=== PATIENT | male | born 1940 | race Caucasian/White ===

== ENCOUNTER → 2017-07-29 | Outpatient (CLI) | payer MEDICARE ==
--- NOTE | 2017-07-29 15:52 | Diagnostic Imaging Report ---
PROCEDURE: CT ABDOMEN AND PELVIS WITHOUT CONTRAST COMPARISON:None. INDICATIONS:diverticulitis, llq TECHNIQUE: Axial CT images through the abdomen and pelvis were obtained without intravenous contrast. Oral contrast was administered.. Coronal and sagittal reformations were created. FINDINGS: Lung bases: Clear. Visualized portion of the mediastinum demonstrates a tiny pericardial effusion and moderate calcifications of the aortic valve and coronary arteries. Liver: Decreased attenuation without mass. Spleen: Normal size and contains tiny calcified granulomata Biliary: Multiple dependently layering gallstones measuring less than 10 mm. No biliary ductal dilatation Pancreas: Mild fatty atrophy without mass or ductal dilatation Adrenal Glands: No evidence of mass Right kidney: No renal calculi. Cyst or distended calyx in the upper pole measures 3.2 x 1.7 cm. In cyst at the hilum measures 6.0 x 6.9 cm. Lower pole cyst measures 17 mm. A soft tissue mass in the anterior lower pole measures 1.9 x 2.0 cm. No hydronephrosis. Left kidney: No renal calculi. No mass or hydronephrosis. Bladder/ureters: No ureteral dilatation or calculus. The bladder is underdistended with diffuse mural thickening. A diverticulum at the dome is partially calcified and measures 12 mm. Vasculature: The aorta is normal in diameter but ectatic. Iliac arteries are ectatic. GI: The stomach is well-distended and is normal. There is contrast through the small bowel without thickening or dilatation. There is a small amount of contrast in the right colon. Diverticulosis of the descending colon is present with mural thickening suggestive of previous palpable diverticulitis. No active inflammation on the unenhanced images. The appendix is normal. Peritoneum/Retroperitoneum: No free fluid or fluid collection. The omental infarct anterior to the sigmoid colon as it turns midline measures 3.2 x 2.3 cm. Reproductive organs: Prostate gland measures 5.2 x 5.9 cm. Lymph nodes: No lymphadenopathy. MSK: Mild to moderate generative changes of the spine. No compression deformities. No focal osseous lesions. Soft tissues: Fat-containing hernia as after 10 mm. Calcifications in the posterior left pelvis measure up to 2.8 x 2.0 cm. CONCLUSION: 1. Diverticulosis coli. No conclusive evidence of acute diverticulitis. 2. Right renal cysts and possible solid mass in the right kidney. Recommend further characterization with MRI. No IV contrast is needed. 3. Prostate hypertrophy and mural thickening of the bladder suggestive of outlet obstruction. 4. Partially calcified diverticulum in the bladder dome may represent a urachal or mural diverticulum. This should periodically monitored to confirm stability. 5. Hepatic steatosis. Dictated by: Paul Buchanan M.D. on 07/29/2017 at 15:52 Electronically approved by: Paul Buchanan M.D. on 07/29/2017 at 15:52
== END ==
LOC: CT 14:47
PROVIDERS: ATTEND Family Medicine
DX: K57.32 Diverticulitis of large intestine without perforation or abscess without bleeding (principal)
CPT/HCPCS: 74176

== ENCOUNTER → 2018-05-11 | Outpatient (CLI) | payer MEDICARE ==
[~2018-05-11] MED LIST: ACETAMINOPHEN 1000 MG/100 ML 100 ML IV ONE
--- NOTE | 2018-05-11 16:06 | Diagnostic Imaging Report ---
EXAM: Soft tissue neck Ultrasound INDICATION: Benign lipomatous tumor . Swelling of right lower cervical region since a week ago COMPARISON: None. TECHNIQUE: Transverse and longitudinal images of bilateral cervical/neck areas were obtained, utilizing grayscale and color Doppler modalities. FINDINGS: Physical examination discloses minimal asymmetry of the soft tissues in the right lower cervical region compared to the left. Sonographic examination shows normal skin, subcutaneous fat, muscle, vessels and limited views of the thyroid. No focal masses, edema, free fluid or fluid collections.. IMPRESSION: No sonographic abnormalities. Signed by: Dr. Rehan Arvizu M.D. on 05/11/2018 4:02 PM
== END ==
LOC: US 15:14
PROVIDERS: ATTEND Family Medicine
DX: D17.0 Benign lipomatous neoplasm of skin and subcutaneous tissue of head, face and neck (principal)
CPT/HCPCS: 76536; J0131

== ENCOUNTER → 2018-08-26 | Day surgery (SDC) | payer MEDICARE ==
[2018-08-25 12:39] LABS: BASOPHILS # (AUTO) 0.1 (0.0-0.1); BASOPHILS % 0.6 % (0.0-1.0); EOSINOPHILS # (AUTO) 0.4 (0.0-0.4); EOSINOPHILS % 5.4 % (0.0-6.0); HEMATOCRIT 45.4 % (38.2-49.6); HEMOGLOBIN 14.9 g/dL (14.0-18.0); LYMPHOCYTES # (AUTO) 2.4 (1.0-3.2); MEAN CORPUSCULAR HEMOGLOBIN 31.4 pg (28-32); MEAN CORPUSCULAR HGB CONC 32.8 g/dL (31-35); MEAN CORPUSCULAR VOLUME 95.6 fL (81-99); MONOCYTES # (AUTO) 0.9 (0.2-0.8); MONOCYTES % 11.1 % (4.4-11.3); NEUTROPHILS % 51.5 % (38.7-80.0); PLATELET COUNT 117 x10e3/uL (140-360); RED BLOOD COUNT 4.75 x10e6/uL (4.3-5.7); RED CELL DISTRIBUTION WIDTH 14.6 % (11.7-14.4)
--- NOTE | 2018-08-25 12:47 | Diagnostic Imaging Report ---
EXAMINATION: PA and lateral views of the chest. COMPARISON: None CLINICAL HISTORY: Preadmission, carpal tunnel surgery DISCUSSION: Lines/tubes: None. Lungs: The lungs are well inflated and clear. Scattered calcified granuloma. No pneumonia or pulmonary edema. Pleura: No pleural effusion or pneumothorax. Heart and mediastinum: Prominent heart size. Bones and soft tissues: No acute bony abnormalities. IMPRESSION: No acute cardiopulmonary abnormalities. Signed by: Dr. Rogelio Shetty M.D. on 08/25/2018 12:44 PM
[2018-08-25 12:49] LABS: INR 0.99; PROTHROMBIN TIME 13.6 seconds (11.9-14.5)
[2018-08-25 12:50] LABS: PARTIAL THROMBOPLASTIN TIME 31.5 seconds (23.8-35.5)
[2018-08-25 12:53] LABS: ANION GAP 10.8 mmol/L (8-16); BLOOD UREA NITROGEN 11 mg/dL (7-26); BUN/CREATININE RATIO 13 (6-25); CALCIUM 9.2 mg/dL (8.4-10.2); CARBON DIOXIDE 27 mmol/L (22-29); CHLORIDE 101 mmol/L (98-107); CREATININE, SERUM 0.84 mg/dL (0.72-1.25); EST GLOMERULAR FILTRATION RATE > 60 ML/MIN (60-); GLUCOSE 138 mg/dL (74-118); POTASSIUM 3.8 mmol/L (3.5-5.1); SODIUM 135 mmol/L (136-145)
[~2018-08-26] MED LIST changes: -ACETAMINOPHEN 1000 MG/100 ML 100 ML IV ONE; +ALLOPURINOL300 MG PO; +ALTACE10 MG PO; +ATENOLOL50 MG PO; +BUPIVACAINE HCL 0.5% INJ 30 ML VIAL INJ ONE; +BUSPAR PO; +CARDURA4 MG PO; +ELIQUIS PO; +HYDROCODONE/APAP 7.5MG-325MG 1 EA TAB ONE; +LIBRAX CAPSULE1 EACH PO; +LIDOCAINE HCL 2% LOCAL INJ 5 ML SDV VIAL INJ ONE; +MAXZIDE 37.5 M1 EACH PO; +NORVASC5 MG PO; +OMEPRAZOLE40 MG PO; +ONDANSETRON HCL INJ 2MG/ML 2ML 2 MG/ML VIAL ONE; +PROPOFOL IV EMULSION 10 MG/ML 20 ML VIAL ONE; +SEVOFLURANE INHAL SOLN 250 ML PEN BTL ONE; +SODIUM CHLORIDE 0.9% 50ML 50 ML ONE; +VANCOMYCIN 1GM/NS 250 ML 250 ML ONE; +VANCOMYCIN HCL 500 MG ONE; +ZOCOR40 MG PO
--- OUTSIDE RECORDS SUMMARY | 2018-08-26 06:35 | XMS REPORT ---
Author Author [facility] Address Unknown Phone Unavailable Care Team Providers Care Software Engineer Mobile Name Role Phone SEGUN WALTERS Unavailable Unavailable LOI RANDOLPH Unavailable Unavailable Problems This patient has no known problems. Allergies, Adverse Reactions, Alerts This patient has no known allergies or adverse reactions. Medications This patient has no known medications. Results Test Description Test Time Test Comments Text Results Atomic Results Result Comments CHEST 2 VIEWS 2018-08-25 12:42:00 [facility] [address] [address] Patient Name: CAIO MOHR MR #: [id number] : 1940 Age/Sex: 78/M Req #: [id number] Adm Physician: Ordered by: SEGUN WALTERS MD Report #: [id number] Location: OR Room/Bed: Procedure: [id number] DX/CHEST 2 VIEWS Exam Date: 08/25/18 Exam Time: 1210 REPORT STATUS: Signed EXAMINATION: PA and lateral views of the chest. DONALDO RISON: None CLINICAL HISTORY: Preadmission, carpal tunnel surgery DISCUSSION: Lines/tubes: None. Lungs: The lungs are well inflated and clear. Scattered calcified granuloma. No pneumonia or pulmonary edema. Pleura: No pleural effusion or pneumothorax. Heart and mediastinum: Prominent heart size. Bones and soft tissues: No acute bony abnormalities. IMPRESSION: No acute cardiopulmonary abnormalities. Signed by: Dr. Vicki Eaton M.D. on 08/25/2018 12:44 PM Dictated By: VICKI EATON MD 1244 Transcribed By: JATIN on 08/25/18 1244 COPY TO: SEGUN WALTERS MD SOFT TISSUE NECK/HEAD 2018-05-11 16:00:00 [place] [address] Patient Name: CAIO MOHR MR #: [id number] : 1940 Age/Sex: 77/M Req #: [id number] Adm Physician: Ordered by: LOI RANDOLPH MD Report #: [id number] Location: Room/Bed: Procedure: [id number] US/US SOFT TISSUE NECK/HEAD Exam Date: 05/11/18 Exam Time: 1527 REPORT STATUS: Signed EXAM: Soft tissue neck Ultrasound INDICATION: Benign lipomatous tumor . Swelling of right lower cervical region since a week ago COMPARISON: None. TECHNIQUE: Transverse and longitudinal images of bilateral cervical/neck areas were obtained, utilizing grayscale and color Doppler modalities. FINDINGS: Physical examination discloses minimal asymmetry of the soft tissues in the right lower cervical region compared to the left. Sonographic examination shows normal skin, subcutaneous fat, muscle, vessels and limited views of the thyroid. No focal masses, edema, free fluid or fluid collections.. IMPRESSION: No sonographic abnormalities. Signed by: Dr. Nelda Arvizu M.D. on 05/11/2018 4:02 PM Dictated By: NELDA ARVIZU MD 1602 Transcribed By: JATIN on 05/11/18 1602 COPY TO: LOI RANDOLPH MD CT ABDOMEN/PELVIS WO [place] [address] Patient Name: CAIO MOHR MR #: [id number] : 1940 Age/Sex: 77/M Req #: [id number] Adm Physician: Ordered by: LOI RANDOLPH MD Report #: [id number] Location: CT Room/Bed: Procedure: [id number] CT/CT ABDOMEN/PELVIS WO Exam Date: 07/29/17 Exam Time: 1500 REPORT STATUS: Signed PROCEDURE: CT ABDOMEN AND PELVIS WITHOUT CONTRAST COMPARISON: None. INDICATIONS: diverticulitis, llq TECHNIQUE: Axial CT images through the abdomen and pelvis were obtained without intravenous contrast. Oral contrast was administered.. Coronal and sagittal reformations were created. FINDINGS: Lung bases: Clear. Visualized portion of the mediastinum demonstrates a tiny pericardial effusion and moderate calcifications of the aortic valve and coronary arteries. Liver: Decreased attenuation without mass. Spleen: Normal size and contains tiny calcified granulomata Biliary: Multiple dependently layering gallstones measuring less than 10 mm. No biliary ductal dilatation Pancreas: Mild fatty atrophy without mass or ductal dilatation Adrenal Glands: No evidence of mass Right kidney: No renal calculi. Cyst or distended calyx in the upper pole measures 3.2 x 1.7 cm. In cyst at the hilum measures 6.0 x 6.9 cm. Lower pole cyst measures 17 mm. A soft tissue mass in the anterior lower pole measures 1.9 x 2.0 cm. No hydronephrosis. Left kidney: No renal calculi. No mass or hydronephrosis. Bladder/ureters: No ureteral dilatation or calculus. The bladder is underdistended with diffuse mural thickening. A diverticulum at the dome is partially calcified and measures 12 mm. Vasculature: The aorta is normal in diameter but ectatic. Iliac arteries are ectatic. GI: The stomach is well-distended and is normal. There is contrast through the small bowel without thickening or dilatation. There is a small amount of contrast in the right colon. Diverticulosis of the descending colon is present with mural thickening suggestive of previous palpable diverticulitis. No active inflammation on the unenhanced images. The appendix is normal. Per itoneum/Retroperitoneum: No free fluid or fluid collection. The omental infarct anterior to the sigmoid colon as it turns midline measures 3.2 x 2.3 cm. Reproductive organs: Prostate gland measures 5.2 x 5.9 cm. Lymph nodes: No lymphadenopathy. MSK: Mild to moderate generative changes of the spine. No compression deformities. No focal osseous lesions. Soft tissues: Fat-containing hernia as after 10 mm. Calcifications in the posterior left pelvis measure up to 2.8 x 2.0 cm. CONCLUSION: 1. Diverticulosis coli. No conclusive evidence of acute diverticulitis. 2. Right renal cysts and possible solid mass in the right kidney. Recommend further characterization with MRI. No IV contrast is needed. 3. Prostate hypertrophy and mural thickening of the bladder suggestive of outlet obstruction. 4. Partially calcified diverticulum in the bladder dome may represent a urachal or mural diverticulum. This should periodically monitored to confirm stability. 5. Hepatic steatosis. Dictated by: Gilmer Buchanan M.D. on 07/29/2017 at 15:52 Electronically approved by: Gilmer Buchanan M.D. on 07/29/2017 at 15:52 Dictated By: GILMER BUCHANAN MD 1552 Transcribed By: CAMILLA on 07/29/17 1552 COPY TO: LOI RANDOLPH MD
--- OUTSIDE RECORDS SUMMARY | 2018-08-26 06:35 | XMS REPORT | Clinical Summary ---
Author Author [facility] Organization [facility] Address Unknown Phone Unavailable Care Team Providers Care [employer] Magistrate Name Role Phone Lenny Looney MD PCP Allergies Comments Active Allergy Reactions Severity Noted Date Adenosine Anaphylaxis High 09/24/2017 Adhesive Tape-Silicones Hives 09/24/2017 IV Iodine Itching, Rash Low 09/24/2017 Cephalexin Anaphylaxis High 09/24/2017 Latex 11/18/2017 Medications End Date Status Medication Sig Dispensed Refills Start Date Active doxazosin (CARDURA) 4 MG Take 4 mg by 0 tablet mouth nightly. Active ramipril (ALTACE) 10 MG Take 10 mg by 0 capsule mouth 2 (two) times a day. Active amLODIPine (NORVASC) 5 mg Take 5 mg by 0 tablet mouth daily as needed. Elevated bp only Active busPIRone (BUSPAR) 10 MG Take 10 mg by 0 tablet mouth 2 (two) times a day. Active chlordiazepoxide-clidiniu Take 1 0 m (LIBRAX) 5-2.5 mg per capsule by capsule mouth 3 (three) times a day with meals. Active allopurinol (ZYLOPRIM) Take 300 mg 0 300 MG tablet by mouth daily. Active simvastatin (ZOCOR) 40 MG Take 40 mg by 0 tablet mouth nightly. Active atenolol (TENORMIN) 50 MG Take 50 mg by 0 tablet mouth every evening. Active apixaban (ELIQUIS) 5 mg Take by mouth 0 tablet 2 (two) times a day. Active triamterene-hydrochloroth Take 1 tablet 0 iazid (MAXZIDE-25) by mouth 37.5-25 mg per tablet daily. Active famotidine (PEPCID) 40 MG Take 40 mg by 0 tablet mouth 2 (two) times a day as needed for heartburn. Active omeprazole (PriLOSEC) 40 Take 40 mg by 0 MG capsule mouth daily. Active carisoprodol (SOMA ORAL) Take 1 tablet 0 by mouth as needed. Back pain Active HYDROCODONE-ACETAMINOPHEN Take 1 tablet 0 ORAL by mouth every 4 (four) hours as needed. pain Active docusate sodium (COLACE) Take 100 mg 0 100 MG capsule by mouth 2 (two) times a day as needed for constipation. Active fexofenadine HCl (LIZANDRO Take 1 tablet 0 ORAL) by mouth as needed. Active finasteride (PROSCAR) 5 Take 5 mg by 0 mg tablet mouth daily. Active acetaminophen (TYLENOL) Take 650 mg 0 325 MG tablet by mouth every 4 (four) hours as needed for mild pain. 11/11/2017 sodium,potassium,mag Take 1 Bottle 1 Bottle 0 sulfates (SUPREP BOWEL by mouth once 8 PREP KIT) 17.5-3.13-1.6 for 1 dose. gram recon soln 11/13/2017 sodium,potassium,mag Take 1 Bottle 1 Bottle 0 sulfates (SUPREP BOWEL by mouth once 8 PREP KIT) 17.5-3.13-1.6 for 1 dose. gram recon soln Active Problems Problem Noted Date Bladder cancer 09/30/2017 Encounters Care Team Description Date Type Specialty Brando Wright MD 11/20/2017 Telephone Brando Prado MD 11/18/2017 Lab Lab Brando Wright MD 11/18/2017 Documentation Gastroenterology Sonja Small MA 11/17/2017 Telephone Sonja Marie MA 11/13/2017 Refill Sonja Marie MA 11/11/2017 Refill GastroenterBrando Sal MD 11/06/2017 Telephone Brando Prado MD 11/04/2017 Telephone Brando Prado MD 11/02/2017 Telephone GastroenterBrando Sal MD Left upper quadrant pain (Primary Dx); History of colon polyps 10/15/2017 Office Visit Gastroenterology Alana Harris APRN 09/30/2017 Anesthesia Urology Event Joseph Garcia MD CYSTOSCOPY, LEFT URETEROSCOPY 09/30/2017 Surgery Urology Joseph Garcia MD 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 Hospital Urology Encounter Joseph Garcia MD Preop testing (Primary Dx) 09/24/2017 Pre-Admit Pre-Admission Testing Testing Appointment after 08/25/2017 Family History Medical History Relation Name Comments Colon cancer Mother Colon polyps Mother Relation Name Status Comments Mother Social History Date Tobacco Use Types Packs/Day Years Used Never Smoker Smokeless Tobacco: Never Used Tobacco Cessation: Counseling Given: No Alcohol Use Drinks/Week oz/Week Comments Yes rare occasional social Sex Assigned at Date Recorded Not on file Industry Job Start Date Occupation Not on file Not on file Not on file Travel End Travel History Travel Start No recent travel history available. Last Filed Vital Signs Time Taken Vital Sign Reading 10/15/2017 1:00 PM CDT Blood Pressure 156/81 10/15/2017 1:00 PM CDT Pulse 60 10/15/2017 1:00 PM CDT Temperature 36.8 C (98.2 F) 09/30/2017 4:25 PM CDT Respiratory Rate 18 09/30/2017 4:25 PM CDT Oxygen Saturation 94% - Inhaled Oxygen - Concentration 10/15/2017 1:00 PM CDT Weight 121 kg (267 lb) 10/15/2017 1:00 PM CDT Height 182.9 cm (6') 10/15/2017 1:00 PM CDT Body Mass Index 36.21 Plan of Treatment Health Maintenance Due Date Last Done Comments SHINGLES VACCINES (#1) 1988 65+ PNEUMOCOCCAL VACCINE 2003 08/18/2012 (2 of 2 - PPSV23) PNEUMOCOCCAL 2003 POLYSACCHARIDE VACCINE AGE 65 AND OVER INFLUENZA VACCINE 12/30/2017 Procedures Comments Procedure Name Priority Date/Time Associated Diagnosis SURGICAL PATHOLOGY Routine 11/18/2017 REQUEST 1:49 PM CDT POC GLUCOSE Routine 09/30/2017 2:51 PM CDT NM AN ELECTIVE Routine 09/30/2017 SUPRAGLOTTIC AIRWAY 2:14 PM CDT Procedure Note - Roxane Hawkins CRNA - 09/30/2017 2:14 PM CDT Airway Performed by: ROXANE HAWKINS Authorized by: RAO BELLE Location: OR Urgency: Elective Difficult Airway: No Anesthesio logist: RAO BELLE Resident/C RNA/AA: ROXANE HAWKINS Performed by: resident/C RNA/AA Preoxygena sridhar with 100% O2: Yes Final Airway Type: Supraglott ic airway Final LMA: Classic LMA Size: 5 Number of Attempts at Approach: 1 POC GLUCOSE Routine 09/30/2017 1:09 PM CDT CYSTOSCOPY, WITH TURP 09/30/2017 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 Case Notes REQ 1345, POSSIBLE EXTENDED RECOVERY NEEDED Special Needs REQ 1345, POSSIBLE EXTENDED RECOVERY NEEDED URINE CULTURE Routine 09/24/2017 2:58 PM CDT ZZESTIMATED GFR Routine 09/24/2017 11:35 AM CDT HEMOGLOBIN A1C Routine 09/24/2017 Preop testing 11:35 AM CDT URINALYSIS SCREEN AND Routine 09/24/2017 Preop testing MICROSCOPY, WITH REFLEX 11:35 AM CDT TO CULTURE COMPREHENSIVE METABOLIC Routine 09/24/2017 Preop testing PANEL 11:35 AM CDT CBC HEMOGRAM Routine 09/24/2017 Preop testing 11:35 AM CDT after 08/25/2017 Results * Surgical pathology request (11/18/2017 1:49 PM CDT) [facility] DEPARTMENT OF PATHOLOGY AND GENOMIC MEDICINE Surgical pathology report See link below for PDF Lab [facility] DEPARTMENT OF Report PATHOLOGY AND GENOMIC MEDICINE Result status This is Final Report to [facility] DEPARTMENT OF [id number] PATHOLOGY AND GENOMIC MEDICINE Performing Organization Address City/State/Zipcode Phone Number [facility] DEPARTMENT OF [address] [place] [address] PATHOLOGY AND GENOMIC MEDICINE * POC glucose (09/30/2017 2:51 PM CDT) Only the most recent of 2 results within the time period is included. POC glucose 112 (H) 65 - 99 mg/dL [facility] DEPARTMENT OF Comment: PATHOLOGY AND [facility] Notified RN GENOMIC MEDICINE Meter ID: [id number] Financial Associate: Oren Locke Performing Organization Address City/[facility]/[place] [address] PATHOLOGY AND GENOMIC MEDICINE * Urine culture (09/24/2017 2:58 PM CDT) Urine culture SEE COMMENTComment: [facility] DEPARTMENT OF Bacteriuria screen negative. PATHOLOGY AND GENOMIC MEDICINE Performing Organization Address City/[facility] [place] [address] PATHOLOGY AND GENOMIC MEDICINE * Urinalysis screen and microscopy, with reflex to culture (09/24/2017 11:35 AM CDT) Specimen site Clean catch [facility] DEPARTMENT OF PATHOLOGY AND GENOMIC MEDICINE Color, UA Yellow [facility] DEPARTMENT OF PATHOLOGY AND GENOMIC MEDICINE Appearance, UA Clear [facility] DEPARTMENT OF PATHOLOGY AND GENOMIC MEDICINE Specific gravity, UA 1.016 1.001 - 1.035 [facility] DEPARTMENT OF PATHOLOGY AND GENOMIC MEDICINE pH, UA 6.0 5.0 - 8.5 [facility] DEPARTMENT OF PATHOLOGY AND GENOMIC MEDICINE Protein, UA Negative Negative [facility] DEPARTMENT OF PATHOLOGY AND GENOMIC MEDICINE Glucose, UA Negative Negative [facility] DEPARTMENT OF PATHOLOGY AND GENOMIC MEDICINE Ketones, UA Negative Negative [facility] DEPARTMENT OF PATHOLOGY AND GENOMIC MEDICINE Bilirubin, UA Negative Negative [facility] DEPARTMENT OF PATHOLOGY AND GENOMIC MEDICINE Blood, UA Negative Negative [facility] DEPARTMENT OF PATHOLOGY AND GENOMIC MEDICINE Nitrite, UA Negative Negative [facility] DEPARTMENT OF PATHOLOGY AND GENOMIC MEDICINE Urobilinogen, UA <2.0 <2.0 [facility] DEPARTMENT OF PATHOLOGY AND GENOMIC MEDICINE Leukocyte esterase, UA Negative Negative [facility] DEPARTMENT OF PATHOLOGY AND GENOMIC MEDICINE WBC, UA <1 0 - 1 /HPF [facility] DEPARTMENT OF PATHOLOGY AND GENOMIC MEDICINE RBC, UA <1 0 - 5 /HPF [facility] DEPARTMENT OF PATHOLOGY AND GENOMIC MEDICINE Bacteria, UA Few None seen [facility] DEPARTMENT OF PATHOLOGY AND GENOMIC MEDICINE Yeast, UA None seen [facility] DEPARTMENT OF PATHOLOGY AND GENOMIC MEDICINE Yeast with pseudohyphae, None seen [facility] DEPARTMENT OF UA PATHOLOGY AND GENOMIC MEDICINE Specimen Urine Performing Organization Address City/[facility]/[place] [address] PATHOLOGY AND GENOMIC MEDICINE * Estimated GFR (09/24/2017 11:35 AM CDT) GFR Non Af Amer >90 mL/min/1.73 m2 [facility] DEPARTMENT OF PATHOLOGY AND GENOMIC MEDICINE GFR Af Amer >90 mL/min/1.73 m2 [facility] DEPARTMENT OF Comment: PATHOLOGY AND Chronic kidney disease: <60 GENOMIC MEDICINE mL/min/1.73m2 Kidney failure: <15 mL/min/1.73m2 The estimated GFR is calculated from the IDMS-traceable Modification of Diet in Renal Disease Equation. The accuracy of the calculation is poor when the creatinine is normal. Calculated values >90 mL/min/1.73m2 are not reported. This equation has not been validated in children (<18 years), women, the elderly (>70 years), or ethnic groups other than Caucasians and Americans. Specimen Plasma specimen Performing Organization Address City/[facility]/Zipcode Phone Number [address] [address] PATHOLOGY AND [facility]IC[facility] * CBC hemogram (09/24/2017 11:35 AM CDT) WBC 6.73 4.50 - 11.00 k/uL [facility] DEPARTMENT OF PATHOLOGY AND GENOMIC MEDICINE RBC 4.70 4.40 - 6.00 m/uL [facility] DEPARTMENT OF PATHOLOGY AND GENOMIC MEDICINE HGB 14.8 14.0 - 18.0 g/dL [facility] DEPARTMENT OF PATHOLOGY AND GENOMIC MEDICINE HCT 45.8 41.0 - 51.0 % [facility] DEPARTMENT OF PATHOLOGY AND GENOMIC MEDICINE MCV 97.4 82.0 - 100.0 fL [facility] DEPARTMENT OF PATHOLOGY AND GENOMIC MEDICINE MCH 31.5 27.0 - 34.0 pg [facility] DEPARTMENT OF PATHOLOGY AND GENOMIC MEDICINE MCHC 32.3 31.0 - 37.0 g/dL [facility] DEPARTMENT OF PATHOLOGY AND GENOMIC MEDICINE RDW - SD 49.5 37.0 - 55.0 fL [facility] DEPARTMENT OF PATHOLOGY AND GENOMIC MEDICINE MPV 11.8 8.8 - 13.2 fL [facility] DEPARTMENT OF PATHOLOGY AND GENOMIC MEDICINE Platelet count 107 (L) 150 - 400 k/uL [facility] DEPARTMENT OF PATHOLOGY AND GENOMIC MEDICINE Nucleated RBC 0.00 /100 WBC [facility] DEPARTMENT OF PATHOLOGY AND GENOMIC MEDICINE Specimen Blood Performing Organization Address City/State/Zipcode Phone Number [facility] [address] [place] [phone] PATHOLOGY AND [facility]IC[facility] * Hemoglobin A1c (09/24/2017 11:35 AM CDT) Hemoglobin A1C 7.0 (H) 4.0 - 5.6 % [facility] DEPARTMENT OF Comment: PATHOLOGY AND HbA1c cutoffs for diagnosing [facility] MEDICINE diabetes: 4.0% - 5.6%=normal 5.7% - 6.4%=increased risk for diabetes (prediabetes) >=6.5%=diabetes Goals for glycemic control (ADA 2016) < 7.0%Target for non adults with diabetes. More or less stringent targets may be appropriate for individual patients. <7.5% Target for Children and adolescents with type 1 diabetes. Specimen Blood Performing Organization Address City/State/Zipcode Phone Number [facility] DEPARTMENT OF [address] [place] [address] PATHOLOGY AND GENOMIC MEDICINE * Comprehensive metabolic panel (09/24/2017 11:35 AM CDT) Sodium 139 135 - 148 mEq/L [facility] DEPARTMENT OF PATHOLOGY AND GENOMIC MEDICINE Potassium 3.9 3.5 - 5.0 mEq/L [facility] DEPARTMENT OF PATHOLOGY AND GENOMIC MEDICINE Chloride 98 98 - 112 mEq/L [facility] DEPARTMENT OF PATHOLOGY AND GENOMIC MEDICINE CO2 29 24 - 31 mEq/L [facility] DEPARTMENT OF PATHOLOGY AND GENOMIC MEDICINE Anion gap 12 7 - 15 mEq/L [facility] DEPARTMENT OF Comment: PATHOLOGY AND Starting from August [facility] , anion gap calculation no longer incorporates potassium. Please note the change. BUN 8 8 - 23 mg/dL [facility] DEPARTMENT OF PATHOLOGY AND GENOMIC MEDICINE Creatinine 0.8 0.7 - 1.2 mg/dL [facility] DEPARTMENT OF PATHOLOGY AND GENOMIC MEDICINE Glucose 114 (H) 65 - 99 mg/dL [facility] DEPARTMENT OF PATHOLOGY AND GENOMIC MEDICINE Calcium 9.2 8.8 - 10.2 mg/dL [facility] DEPARTMENT OF PATHOLOGY AND GENOMIC MEDICINE Protein 6.8 6.3 - 8.3 g/dL [facility] DEPARTMENT OF Comment: PATHOLOGY AND [employer] GENOMIC MEDICINE 4.6-7.0 g/dL 1 week 4.4-7.6 g/dL 7 months-1year 5.1-7.3 g/dL 1-2 years5.6-7 .5 g/dL >3 years6.0-8 .0 g/dL 18-150 6.3-8.3 g/dL Albumin 3.6 3.5 - 5.0 g/dL [facility] DEPARTMENT OF PATHOLOGY AND GENOMIC MEDICINE A/G ratio 1.1 0.7 - 3.8 [facility] DEPARTMENT OF PATHOLOGY AND GENOMIC MEDICINE Alkaline phosphatase 80 40 - 129 U/L [facility] DEPARTMENT OF PATHOLOGY AND GENOMIC MEDICINE AST 18 10 - 50 U/L [facility] DEPARTMENT OF PATHOLOGY AND GENOMIC MEDICINE ALT 11 5 - 50 U/L [facility] DEPARTMENT OF PATHOLOGY AND GENOMIC MEDICINE Total bilirubin 0.9 0.0 - 1.2 mg/dL [facility] DEPARTMENT OF PATHOLOGY AND GENOMIC MEDICINE Specimen Plasma specimen Performing Organization Address City/State/Zipcode Phone Number [facility] DEPARTMENT OF [address] [place] [phone] PATHOLOGY AND GENOMIC MEDICINE after 08/25/2017 Insurance Payer Benefit Subscriber ID Type Phone Address Plan / Group HUMANA MEDICARE HUMANA xxxxxxxxx PPO MEDICARE PPO/PFFS/E [facility] Advance Directives Patient has advance care planning documents on file. For more information, [place] contact: Rajiv Jason [address] [place] [address]
[2018-08-26 11:50] VITALS: BP 137/82
--- NOTE | 2018-08-26 16:56 | Operative Report ---
DATE OF PROCEDURE: 08/26/2018 SURGEON: Pedro Lau MD PREOPERATIVE DIAGNOSIS: Right carpal tunnel syndrome. POSTOPERATIVE DIAGNOSIS: Right carpal tunnel syndrome. PROCEDURE PERFORMED: Right carpal tunnel release. ANESTHESIA: General. INDICATIONS: The patient is a man, who presents with right carpal tunnel syndrome, was taken to operating room for right carpal tunnel release. DESCRIPTION OF PROCEDURE: After induction of general anesthesia, the right hand, wrist, and forearm were prepped and draped circumferentially in a sterile fashion. A tourniquet was inflated over the upper arm to 250 mmHg. A small midline incision was created over the medial and palmar crease of the hand just distal to the distal flexor crease of the wrist. The subcutaneous fat was divided. The transverse carpal ligament was identified and incised with a #[id number] blade until the underlying median nerve came into view. As the engineering inspection assistant retracted the skin edges, the transverse carpal ligament was divided proximally and distally until the full length of ligament had been divided and median nerve was exposed and decompressed within the carpal tunnel. The point of maximum compression of the nerve appeared to be 2 cm distal to the distal flexor crease of the of the wrist, but the ligament was at its thickest. More distally, the recurrent motor branch of the nerve was preserved within this fat pad. The wound was copiously irrigated with bacitracin solution. Hemostasis was secured. The subcutaneous layer was closed with 3-0 Vicryl suture. The skin was closed with 4-0 Monocryl suture in subcuticular fashion. Steri-Strips and a dressing were applied. The patient was awakened, extubated and taken to postanesthesia care unit in stable condition. No intraoperative complications were encountered. Estimated blood loss was minimal. Pedro Lau MD PP/MODL /[id number]
== END | disposition home or self-care (01) ==
LOC: OR 06:32
PROVIDERS: ATTEND Neurological Surgery
DX: G56.01 Carpal tunnel syndrome, right upper limb (principal); G47.33 Obstructive sleep apnea (adult) (pediatric); I48.91 Unspecified atrial fibrillation; I10 Essential (primary) hypertension; E78.5 Hyperlipidemia, unspecified; E11.9 Type 2 diabetes mellitus without complications; Z88.8 Allergy status to other drugs, medicaments and biological substances; Z88.1 Allergy status to other antibiotic agents; Z91.041 Radiographic dye allergy status; Z01.810 Encounter for preprocedural cardiovascular examination; Z01.812 Encounter for preprocedural laboratory examination; Z01.818 Encounter for other preprocedural examination; Z79.02 Long term (current) use of antithrombotics/antiplatelets; Z68.36 Body mass index [BMI] 36.0-36.9, adult; Z86.73 Personal history of transient ischemic attack (TIA), and cerebral infarction without residual deficits; Z85.828 Personal history of other malignant neoplasm of skin
CPT/HCPCS: 36415; 64721; 71046; 80048; 85025; 85610; 85730; 93005; J2001; J2405; J2704; J3370 ×2

== ENCOUNTER → 2022-01-21 | Day surgery (SDC) | payer MEDICARE ==
[2022-01-16 14:22] LABS: BASOPHILS # (AUTO) 0.1 (0.0-0.1); BASOPHILS % 0.8 % (0.0-1.0); EOSINOPHILS # (AUTO) 0.3 (0.0-0.4); EOSINOPHILS % 3.5 % (0.0-6.0); HEMATOCRIT 44.9 % (38.2-49.6); HEMOGLOBIN 14.9 g/dL (14.0-18.0); LYMPHOCYTES # (AUTO) 2.4 (1.0-3.2); LYMPHOCYTES % 27.5 % (18.0-39.1); MEAN CORPUSCULAR HGB CONC 33.2 g/dL (31-35); MEAN CORPUSCULAR VOLUME 93.5 fL (81-99); MONOCYTES # (AUTO) 0.9 (0.2-0.8); MONOCYTES % 10.2 % (4.4-11.3); NEUTROPHILS # (AUTO) 4.9 (2.1-6.9); NEUTROPHILS % 57.4 % (38.7-80.0); PLATELET COUNT 147 x10e3/uL (140-360); RED CELL DISTRIBUTION WIDTH 15.1 % (11.7-14.4)
[2022-01-16 14:44] LABS: ALBUMIN 3.7 g/dL (3.5-5.0); ALBUMIN/GLOBULIN RATIO 1.3 (0.8-2.0); ANION GAP 13.4 mmol/L (8-16); CALCIUM 9.2 mg/dL (8.4-10.2); CREATININE, SERUM 0.79 mg/dL (0.72-1.25); POTASSIUM 4.4 mmol/L (3.5-5.1)
[~2022-01-21] VITALS: Ht 182.9 cm; Wt 119.3 kg
[2022-01-21] VITALS (18 sets, daily range): BP systolic 101–142; BP diastolic 69–99
[~2022-01-21] MED LIST changes: +ALPRAZOLAM 0.5 MG TAB ONE; +ASPIRIN 325 MG TAB ONE; +BACTRIM 400-801 EACH PO; +BIVALRIUDIN 250 MG/VIAL VIAL IV ONE; -BUPIVACAINE HCL 0.5% INJ 30 ML VIAL INJ ONE; +COLCHICINE0.6 M1 PO; +DIPHENHYDRAMINE HCL INJ 50 MG/ML VIAL ONE; +FENTANYL CITRATE/PF 100MCG/2 ML INJ ONE; +FINASTERIDE5 MG PO; +GLIMEPIRIDE2 MG PO; +HEPARIN SOD (PORCINE) 1000 UNIT/ML 30ML ONE; +HEPARIN SOD/SOD CHLORIDE 2,000 ML ONE; -HYDROCODONE/APAP 7.5MG-325MG 1 EA TAB ONE; +IOPAMIDOL 370 MG/ML 100 ML INFUS..BTL INJ ONE; +LEVOTHYROXINE50 MCG PO; +LEVSIN0.125 MG PO; +LIDOCAINE HCL 1% LOCAL INJ 20 ML VIAL ONE; -LIDOCAINE HCL 2% LOCAL INJ 5 ML SDV VIAL INJ ONE; +LORTAB 10 MG-3473 ML PO; +METHYLPREDNISOLONE SOD SUCC 125 MG/2ML VIAL ONE; +MIDAZOLAM HCL 2 MG/2 ML VIAL ONE; +NEURONTIN100 MG PO; +NITROGLYCERIN/D5W 200 MCG/ML 250 ML ONE; -ONDANSETRON HCL INJ 2MG/ML 2ML 2 MG/ML VIAL ONE; +PRASUGREL 10 MG TAB ONE; -PROPOFOL IV EMULSION 10 MG/ML 20 ML VIAL ONE; -SEVOFLURANE INHAL SOLN 250 ML PEN BTL ONE; +SODIUM CHLORIDE 0.9% 1000ML 1,000 ML ONE; +SODIUM CHLORIDE 0.9% 250ML 250 ML ONE; -SODIUM CHLORIDE 0.9% 50ML 50 ML ONE; +ULTRAM50 MG PO; -VANCOMYCIN 1GM/NS 250 ML 250 ML ONE; -VANCOMYCIN HCL 500 MG ONE; +VERAPAMIL HCL 2.5 MG/ML 2 ML VIAL ONE
== END | disposition home or self-care (01) ==
LOC: CATH LAB 09:34
PROVIDERS: ATTEND Internal Medicine Interventional Cardiology
DX: I25.119 Atherosclerotic heart disease of native coronary artery with unspecified angina pectoris (principal); R94.39 Abnormal result of other cardiovascular function study; Z01.812 Encounter for preprocedural laboratory examination; Z20.822 Contact with and (suspected) exposure to COVID-19; Z79.899 Other long term (current) drug therapy
CPT/HCPCS: 93454; C9600; 0223U; 36415; 76937; 80053; 82948; 85025; 92928; 99152; 99153; C1769; C1874; C1887; C1894; J0583; J1200; J1644; J2001; J2250; J2930; J3010; J7030; J7050; Q9967

== ENCOUNTER → 2024-08-25 | Outpatient (REF) | payer MEDICARE ==
[~2024-08-25] MED LIST changes: -ALPRAZOLAM 0.5 MG TAB ONE; -ASPIRIN 325 MG TAB ONE; -BIVALRIUDIN 250 MG/VIAL VIAL IV ONE; -DIPHENHYDRAMINE HCL INJ 50 MG/ML VIAL ONE; -FENTANYL CITRATE/PF 100MCG/2 ML INJ ONE; -HEPARIN SOD (PORCINE) 1000 UNIT/ML 30ML ONE; -HEPARIN SOD/SOD CHLORIDE 2,000 ML ONE; -LIDOCAINE HCL 1% LOCAL INJ 20 ML VIAL ONE; -METHYLPREDNISOLONE SOD SUCC 125 MG/2ML VIAL ONE; -MIDAZOLAM HCL 2 MG/2 ML VIAL ONE; -NITROGLYCERIN/D5W 200 MCG/ML 250 ML ONE; -PRASUGREL 10 MG TAB ONE; -SODIUM CHLORIDE 0.9% 1000ML 1,000 ML ONE; -SODIUM CHLORIDE 0.9% 250ML 250 ML ONE; -VERAPAMIL HCL 2.5 MG/ML 2 ML VIAL ONE
[2024-08-25 09:45] LABS: CREATININE, SERUM 0.74 mg/dL (0.72-1.25)
== END ==
LOC: CT 08:49
PROVIDERS: ATTEND Nurse Practitioner Primary Care
DX: R10.32 Left lower quadrant pain (principal)
CPT/HCPCS: 36415; 74177; 82565; 84520; Q9967